=== PATIENT | male | born 1990 ===

== ENCOUNTER 2023-05-26 02:26 | Emergency (ER) | payer OTHER ==
[~2023-05-26] VITALS: Ht 182.9 cm; Wt 95.2 kg
[2023-05-26] MEDS ORDERED: CELECOXIB200 MG PO (02:46)
[2023-05-26] MEDS ORDERED: PERCOCET 5-3251 EACH PO (02:47)
[2023-05-26] MEDS ORDERED: ACETAMINOPHEN325 M1 PO (02:47)
[2023-05-26] MEDS ORDERED: MIRALAX119 GM PO (02:48)
[2023-05-26] MEDS ORDERED: OXYCODONE/APAP 5/325 TAB PO ONE (03:00)
[2023-05-26 03:35] VITALS: BP 146/85
--- NOTE | 2023-05-28 23:06 | EKG ---
[facility] [address] [place], [place] [address] Signed Sinus bradycardia Early repolarization Confirmed by Dutch Aguilar M.D. ([id number]) on 05/28/2023 11:06:32 PM Electronically Signed By: DUTCH AGUILAR MD 05/28/23 [id number] PATIENT NAME: JEANETTE STOCK Electrocardiogram DATE OF : 89 PHYSICIAN: DUTCH AGUILAR MD REPORT #: [id number] REPORT IS CONFIDENTIAL AND NOT TO BE RELEASED WITHOUT AUTHORIZATION
== END 2023-05-26 03:37 | disposition home or self-care (01) ==
LOC: ED 02:26
DX: R00.1 Bradycardia, unspecified (principal); G89.18 Other acute postprocedural pain; I49.40 Unspecified premature depolarization; Z88.0 Allergy status to penicillin; Z79.899 Other long term (current) drug therapy
CPT/HCPCS: 93005; 93010